=== PATIENT | female | born 1985 | race Caucasian/White ===

== ENCOUNTER 2020-02-11 15:42 | Emergency (ER) | payer MEDICARE, MEDICAID, OTHER ==
--- NOTE | 2020-02-11 16:59 | UC ---
General HPI - HPI Summary HPI Summary: 34 yo female feeling bad on and off x 3 weeks fever up to 101F at home fro the first week better after that but not back to normal, unsure how high temperature went 6 days ago + nausea and vomiting "stomach acid fluid" No rash + scratchy throat no cp / palpitations no new sob / no breathing difficulty + cough clear productive + runny nose clear No ear pain No new abd pain, no new n/v/d + straight cath, thinks increased volume, no hematuria, no recent color change in the last few weeks, no increase in odor Some back pain, but no change from baseline Called pcp today, advised that she be tested for covid - History of Current Complaint Stated Complaint: CV TEST Time Seen by Provider: 02/11/20 16:47 Hx Obtained From: Patient PMH/Surg Hx/FS Hx/Imm Hx - Additional Past Medical History 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 Has [employer] filter. Takes eliquis. Review of Systems All Other Systems Reviewed And Are Negative: Yes Constitutional: Positive: Fever, Fatigue Skin: Positive: Negative Eyes: Positive: Negative ENT: Positive: Other - see hpi Respiratory: Positive: Other - see hpi Cardiovascular: Positive: Negative Gastrointestinal: Positive: Other - see hpi Genitourinary: Positive: Other - see hpi Motor: Positive: Other - see hpi Neurovascular: Positive: Other Musculoskeletal: Positive: Other: - see hpi Neurological/Mental Status: Positive: Other - see hpi Psychological: Positive: Negative Is Patient Immunocompromised?: No Physical Exam Triage Information Reviewed: Yes Appearance: Well-Nourished - sitting up in chair, nontoxic general appearance, nad Vital Signs Reviewed: Yes Eye Exam: Normal - not injected, no color d/c ENT: Positive: Pharyngeal erythema, Nasal congestion, TM dull Neck exam: Normal Neck: Positive: Supple, Nontender, No Lymphadenopathy Respiratory: Positive: Lungs clear, Normal breath sounds, No respiratory distress Cardiovascular Exam: Normal Cardiovascular: Positive: RRR, Pulses Normal, Brisk Capillary Refill Abdominal Exam: Other - abd benign, soft, nondistended. NABS noted. unable to ascertain +/- cvat d/t insensate Pelvic Exam: Positive: Other - perineum deferred Musculoskeletal Exam: Other - in wheelchair, sitting up. BLE + lymphedema noted. Neurological Exam: Other - Detailed neurologic exam deferred. + T12 paralysis Psychological Exam: Normal Skin Exam: Normal - no visible or reported rash nondiaphoretic Course/Dx - Course Course Of Treatment: Reviewed coa / tx plan Declines further testing (ex urine). Does not want to be evaluated in ED (re blood clots). Aware that if condition changes or worsens, the ED evaluation may be indicated. Questions as posed answered to the best of my ability. RST neg Influenza a/b neg Covid 19 sent - Diagnoses Provider Diagnosis: Viral syndrome Discharge ED - Sign-Out/Discharge Documenting (check all that apply): Patient Departure All imaging exams completed and their final reports reviewed: No Studies - Discharge Plan Condition: Stable Disposition: HOME Patient Education Materials: Viral Syndrome (ED), COVID-19 (Coronavirus Disease 2019) (ED) Referrals: Jed Haynes MD [Primary Care Provider] - Additional Instructions: Rapid strep test negative Influenza a/b negative Covid 19 sent. Please refer to attached Covid 19 instructions. - Billing Disposition and Condition Condition: STABLE Disposition: Home
[2020-02-11 17:30] VITALS: BP 124/81
[2020-02-11 17:40] LABS: Influenza A Molecular Negative (Negative); Influenza B Molecular Negative (Negative)
== END 2020-02-11 17:54 | disposition home or self-care (01) ==
LOC: UCEAST 15:42
DX: B34.9 Viral infection, unspecified (principal); Z20.828 Contact with and (suspected) exposure to other viral communicable diseases; Z86.718 Personal history of other venous thrombosis and embolism; Z79.01 Long term (current) use of anticoagulants; Z86.711 Personal history of pulmonary embolism; G83.9 Paralytic syndrome, unspecified
CPT/HCPCS: 87635; 87651; 99201; G0463